=== PATIENT | male | born 1975 | race Caucasian/White ===

== ENCOUNTER 2023-07-01 01:09 | Emergency (ER) | payer MEDICAID ==
[~2023-07-01] VITALS: Ht 167.6 cm; Wt 127.0 kg
[2023-07-01 01:20] VITALS: TEMP 98.5
[2023-07-01] MEDS ORDERED: IBUP-1492 PO (02:55)
[2023-07-01] MEDS ORDERED: METH-812 PO (02:55)
[2023-07-01] MEDS ORDERED: METHOCARBAMOL 500 MG TABLET PO ONE (03:00)
[2023-07-01] MEDS ORDERED: IBUPROFEN 800 MG TABLET PO ONE (03:00)
[2023-07-01 03:46] VITALS: BP 135/77; PULSE 71; RESP 18
== END 2023-07-01 04:00 | disposition home or self-care (01) ==
LOC: EMS 01:09
DX: M54.50 Low back pain, unspecified (principal); Z98.890 Other specified postprocedural states
CPT/HCPCS: 99283